=== PATIENT | male | born 2000 | race Caucasian/White ===

== ENCOUNTER 2021-10-10 18:10 | Emergency (ER) | payer BC ==
[2021-10-10 18:49] VITALS: TEMP 98.4
[2021-10-10 19:08] LABS: COLLECTION METHOD CLEAN CATCH
[2021-10-10 19:15] LABS: BASO % 0.6 % (0.0-2.0); EOS # 0.2 K/mm3 (0.0-0.7); EOS % 2.4 % (0-4.0); GRAN # 4.2 K/mm3 (1.4-6.5); GRAN % 61.9 % (42.2-75.2); HEMATOCRIT 42.6 % (36.0-47.0); LYMPH # 1.7 K/mm3 (1.2-3.4); LYMPH % 25.4 % (20.0-51.0); MEAN CELL VOLUME 89 fl (80.0-95.0); MEAN CORPUSCULAR HEMOGLOBIN 31 pg (26.0-32.0); MEAN CORPUSCULAR HGB CONC 35 g/dl (33.0-37.0); MEAN PLATELET VOLUME 10.4 fl (7.4-10.4); MONO # 0.6 K/mm3 (0.1-0.6); MONO % 9.4 % (1.7-9.3); MUCOUS Present (NOT PRESENT); PH 8 (5-8); PLATELET COUNT 298 K/mm3 (130-400); RED BLOOD COUNT 4.77 M/mm3 (4.20-5.60); REDCELL DISTRIBUTION WIDTH-CV 11.6 % (11.5-14.5); SQUAMOUS EPITHELIAL 0-2 /hpf (0-10); URINE APPEARANCE Clear (CLEAR/HAZY); URINE BACTERIA None Seen (NONE SEEN); URINE BILIRUBIN Negative (NEGATIVE); URINE BLOOD Negative (NEGATIVE); URINE COLOR Yellow (YELLOW); URINE GLUCOSE Negative (NEGATIVE); URINE KETONE Negative (NEGATIVE); URINE LEUKOCYTE ESTERASE Negative (NEGATIVE); URINE NITRATE Negative (NEGATIVE); URINE PROTEIN(semi-quant) Negative (NEGATIVE); URINE RBC 0-2 /hpf (0-2); URINE UROBILINOGEN Negative (NEGATIVE)
[2021-10-10 19:22] LABS: TRICYCLIC ANTIDEPRESS URINE NEGATIVE
[2021-10-10 19:35] LABS: ANION GAP 10 mmol/L (7-16); BLOOD UREA NITROGEN 10 mg/dL (8-21); CALCIUM 9.2 mg/dL (8.4-10.2); CARBON DIOXIDE 26 mmol/L (22-29); CHLORIDE 105 mmol/L (98-107); CREATININE, serum 0.98 mg/dL (0.72-1.25); GLUCOSE 85 mg/dL (70-99); SODIUM 141 mmol/L (136-145)
[2021-10-10 19:36] LABS: ALCOHOL(ethanol),MEDICAL < 10 mg/dL (0-10)
[2021-10-10 19:52] LABS: TROPONIN-I < 0.010 ng/mL (0.00-0.033)
[2021-10-10 22:17] VITALS: BP 132/75; PULSE 51
== END 2021-10-10 22:17 | disposition home or self-care (01) ==
LOC: COL.ER 18:10
PROVIDERS: Student in an Organized Health Care Education/Training Program
DX: S09.90XA Unspecified injury of head, initial encounter (principal); R11.0 Nausea; R55 Syncope and collapse; I49.3 Ventricular premature depolarization; W19.XXXA Unspecified fall, initial encounter